=== PATIENT | female | born 1995 | race American Indian/Alaskan Native ===

== ENCOUNTER 2022-06-24 02:23 | Emergency (ER) | payer OTHER ==
[2022-06-24 04:00] LABS: AMPHETAMINES,URINE NEGATIVE (NEGATIVE); BARBITURATES,URINE NEGATIVE (NEGATIVE); BENZODIAZEPINE,URINE NEGATIVE (NEGATIVE); MDMA (ECSTASY), URINE NEGATIVE (NEGATIVE); METHADONE,URINE NEGATIVE (NEGATIVE); METHAMPHETAMINES,URINE NEGATIVE (NEGATIVE); OPIATES,URINE NEGATIVE (NEGATIVE); OXYCODONE,URINE NEGATIVE (NEGATIVE); PHENCYCLIDINE,URINE NEGATIVE (NEGATIVE); TCA,URINE NEGATIVE (NEGATIVE)
[2022-06-24 04:24] LABS: ANION GAP 13.7 mEq/L (7-13)
== END 2022-06-24 06:47 ==
LOC: DL.ED 02:23
DX: S02.85XA Fracture of orbit, unspecified, initial encounter for closed fracture (principal); S51.852A Open bite of left forearm, initial encounter; F10.920 Alcohol use, unspecified with intoxication, uncomplicated; R31.1 Benign essential microscopic hematuria; Y90.3 Blood alcohol level of 60-79 mg/100 ml; W50.3XXA Accidental bite by another person, initial encounter
CPT/HCPCS: 36415; 70450; 70486; 72125; 73130-RT; 80053; 80305-QW; 80307; 81001; 81025; 82947; 83605; 85025; 99284